=== PATIENT | female | born 1955 | race Caucasian/White ===

== ENCOUNTER 2018-05-10 18:01 | Emergency (ER) | payer OTHER ==
[2018-05-10 19:08] LABS: ADD MAN DIFF? NO
[2018-05-10] MEDS: ASPIRIN 325 MG TAB PO (19:09)
[2018-05-10 19:11] LABS: BASOPHIL # 0.1 10^3/ul (0.0-0.1); BASOPHILS % 1.2 % (0.0-2.0); EOSINOPHILS # 0.3 10^3/ul (0.0-0.5); EOSINOPHILS % 3.3 % (0.0-7.0); HEMOGLOBIN 12.9 g/dl (12.0-16.0); LYMPHOCYTES # 3.8 10^3/ul (0.8-2.9); LYMPHOCYTES % 42.1 % (15.0-51.0); MEAN CORPUSCULAR HEMOGLOBIN 28.5 pg (29.0-33.0); MEAN CORPUSCULAR HGB CONC 33.1 g/dl (32.0-37.0); MEAN CORPUSCULAR VOLUME 86.1 fl (82.0-101.0); MEAN PLATELET VOLUME 10.1 fl (7.4-10.4); MONOCYTE # 0.8 10^3/ul (0.3-0.9); MONOCYTES % 8.4 % (0.0-11.0); NEUTROPHILS % 44.8 % (39.0-77.0); PLATELET COUNT 219 10^3/UL (140-415); RED BLOOD COUNT 4.53 10^6/ul (4.20-5.40); RED CELL DISTRIBUTION WIDTH 12.9 % (11.5-14.5)
[2018-05-10 19:28] LABS: ANION GAP 14 (8-16); BLOOD UREA NITROGEN 14 mg/dl (7-20); CALCIUM 9.8 mg/dl (8.4-10.2); CARBON DIOXIDE 24 mmol/L (21-31); CHLORIDE 105 mmol/L (97-110); CREATININE 0.45 mg/dl (0.44-1.00); GLUCOSE 153 mg/dl (70-220); POTASSIUM 4.3 mmol/L (3.5-5.1); SODIUM 139 mmol/L (135-144)
[2018-05-10 19:40] LABS: B-TYPE NATRIURETIC PEPTIDE 140 PG/ML (0-125); TROPONIN-I < 0.012 ng/ml (0.000-0.120)
[2018-05-10] MEDS: LIDOCAINE/MYLANTA 40 ML BTL PO (19:46)
[2018-05-10] MEDS: morphine 4 MG/ML VIAL IV (21:31)
== END 2018-05-10 21:40 | disposition home or self-care (01) ==
LOC: E/R 18:01
DX: R07.89 Other chest pain (principal); I10 Essential (primary) hypertension; E11.9 Type 2 diabetes mellitus without complications; Z79.4 Long term (current) use of insulin; Z79.82 Long term (current) use of aspirin
CPT/HCPCS: 36415; 71045; 80048; 83880; 84484; 85025; 93005; 96374; 99285-25

== ENCOUNTER → 2018-05-26 | Outpatient (CLI) | payer OTHER ==
[2018-05-26] MEDS: IODIXANOL LOCM 100 ML BTL (12:00)
[2018-05-26] MEDS: SOD CHLORIDE 0.9% 100 ML (12:00)
[2018-05-26] MEDS: NITROGLYCERIN AEROSOL (4.9 GM) (12:21)
== END | disposition home or self-care (01) ==
LOC: C/S 09:51
DX: R06.00 Dyspnea, unspecified (principal)
CPT/HCPCS: 75574

== ENCOUNTER 2018-08-03 07:13 | Observation (INO) | payer OTHER ==
[2018-08-03 07:50] LABS: ADD MAN DIFF? NO
[2018-08-03 07:52] LABS: WHITE BLOOD COUNT 7.4 10^3/ul (4.8-10.8)
[2018-08-03 07:52] LABS: BASOPHIL # 0.1 10^3/ul (0.0-0.1); BASOPHILS % 1.1 % (0.0-2.0); EOSINOPHILS # 0.3 10^3/ul (0.0-0.5); EOSINOPHILS % 4.3 % (0.0-7.0); HEMATOCRIT 39.5 % (37.0-47.0); HEMOGLOBIN 13.1 g/dl (12.0-16.0); LYMPHOCYTES # 2.7 10^3/ul (0.8-2.9); LYMPHOCYTES % 35.9 % (15.0-51.0); MEAN CORPUSCULAR HEMOGLOBIN 28.1 pg (29.0-33.0); MEAN CORPUSCULAR HGB CONC 33.2 g/dl (32.0-37.0); MEAN CORPUSCULAR VOLUME 84.6 fl (82.0-101.0); MEAN PLATELET VOLUME 9.6 fl (7.4-10.4); MONOCYTE # 0.6 10^3/ul (0.3-0.9); MONOCYTES % 7.9 % (0.0-11.0); NEUTROPHIL # 3.8 10^3/ul (1.6-7.5); NEUTROPHILS % 50.5 % (39.0-77.0); PLATELET COUNT 241 10^3/UL (140-415); RED BLOOD COUNT 4.67 10^6/ul (4.20-5.40); RED CELL DISTRIBUTION WIDTH 12.6 % (11.5-14.5)
[2018-08-03 08:10] LABS: ANION GAP 9 (5-13); BLOOD UREA NITROGEN 13 mg/dl (7-20); CALCIUM 9.7 mg/dl (8.4-10.2); CARBON DIOXIDE 29 mmol/L (21-31); CHLORIDE 102 mmol/L (97-110); CHOL/HDL RATIO 5.8 RATIO; CHOLESTEROL 246 mg/dl (100-200); CREATININE 0.53 mg/dl (0.44-1.00); Estimated GFR > 60 mL/min (>60); GLUCOSE 231 mg/dl (70-220); HDL CHOLESTEROL 42 mg/dl (35-98); INR 0.91; LDL CHOLESTEROL,CALCULATED 146 mg/dl; POTASSIUM 4.1 mmol/L (3.5-5.1); PROTIME 12.3 Sec (11.9-14.9); SODIUM 140 mmol/L (135-144); TRIGLYCERIDES 288 mg/dl (0-149)
[2018-08-03 08:11] LABS: PARTIAL THROMBOPLASTIN TIME 25.7 Sec (23.0-35.0)
[2018-08-03] MEDS ORDERED: IODIXANOL LOCM 100 ML BTL (08:27)
[2018-08-03] MEDS ORDERED: LIDOCAINE 2% (MDV) 20 ML INJ (08:27)
[2018-08-03] MEDS ORDERED: SOD CHLORIDE 0.9% 500 ML (08:27)
[2018-08-03] MEDS ORDERED: HEPARIN 1000 UNITS/ML 10 ML INJ (08:27)
[2018-08-03] MEDS ORDERED: VERAPAMIL 5 MG INJ (08:28)
[2018-08-03] MEDS ORDERED: NITROGLYCERIN (IC) 100 MCG/ML INJ (08:28)
[2018-08-03] MEDS ORDERED: MIDAZOLAM 1 MG/ML 2 ML INJ (08:28)
[2018-08-03] MEDS ORDERED: FENTAnyl 50 MCG/ML VIAL (08:28)
[2018-08-03] MEDS ORDERED: IOHEXOL 350MG/ML 50 ML BTL (09:57)
[2018-08-03] MEDS ORDERED: BIVALIRUDIN 250MG /NS 50 ML 50 ML IVPB (10:02)
[2018-08-03] MEDS ORDERED: AL HYDROX/MG HYDROX/SIMETH 30 ML CUP PO (10:30)
[2018-08-03] MEDS ORDERED: ZOLPIDEM 5 MG TAB PO (10:30)
[2018-08-03] MEDS ORDERED: morphine 2 MG INJ IV (10:30)
[2018-08-03] MEDS ORDERED: OXYCODONE/ACETAMINOPHEN (5/325) TAB PO (10:30)
[2018-08-03] MEDS ORDERED: ACETAMINOPHEN 325 MG TAB PO (10:30)
[2018-08-03] MEDS: SOD CHLORIDE 0.9% 1,000 ML IV (12:05)
[2018-08-03] MEDS ORDERED: GLUCAGON 1 MG INJ IM (13:00)
[2018-08-03] MEDS ORDERED: GLUCOSE GEL 15 GRAM TUBE PO ×2 (13:00)
[2018-08-03] MEDS ORDERED: GLUCOSE GEL 15 GRAM TUBE BUCCAL (13:00)
[2018-08-03] MEDS ORDERED: DEXTROSE 50% 50 ML SYRINGE IV ×2 (13:00)
[2018-08-03] MEDS: ASPIRIN 325 MG TAB PO (15:17)
[2018-08-03] MEDS: CLOPIDOGREL 75 MG TAB PO (15:17)
[2018-08-03] MEDS: INSULIN ASPART [NOVOLOG] 3 ML PEN SC ×3 (17:24→21:22)
[2018-08-03] MEDS ORDERED: INSULIN ASPART [NOVOLOG] 3 ML PEN SC (17:55)
[2018-08-03] MEDS ORDERED: TICAGRELOR 90 MG TABLET PO (21:00)
[2018-08-03] MEDS ORDERED: PROPRANOLOL 40 MG TAB PO (21:00)
[2018-08-03] MEDS: ATORVASTATIN 40 MG TAB PO (21:16)
[2018-08-03] MEDS: PROPRANOLOL 40 MG TAB PO (21:16)
[2018-08-03] MEDS: INSULIN GLARGINE [LANTus] (100 UNITS/ML) SYG SC (21:22)
[2018-08-04] MEDS: ACCU-CHEK XX ×2 (01:26)
[2018-08-04] MEDS: INSULIN ASPART [NOVOLOG] 3 ML PEN SC ×4 (07:49→11:54)
[2018-08-04] MEDS: PROPRANOLOL 40 MG TAB PO (07:50)
[2018-08-04] MEDS: VENLAFAXINE 25 MG TAB PO (07:50)
[2018-08-04 08:07] LABS: ADD MAN DIFF? NO
[2018-08-04] MEDS: ASPIRIN (EC) 81 MG TAB PO (08:15)
[2018-08-04 08:16] LABS: WHITE BLOOD COUNT 8.6 10^3/ul (4.8-10.8)
[2018-08-04 08:16] LABS: BASOPHIL # 0.1 10^3/ul (0.0-0.1); BASOPHILS % 0.8 % (0.0-2.0); EOSINOPHILS # 0.3 10^3/ul (0.0-0.5); EOSINOPHILS % 3.6 % (0.0-7.0); HEMATOCRIT 37.5 % (37.0-47.0); HEMOGLOBIN 12.1 g/dl (12.0-16.0); LYMPHOCYTES # 2.5 10^3/ul (0.8-2.9); LYMPHOCYTES % 29.5 % (15.0-51.0); MEAN CORPUSCULAR HEMOGLOBIN 27.7 pg (29.0-33.0); MEAN CORPUSCULAR HGB CONC 32.3 g/dl (32.0-37.0); MEAN CORPUSCULAR VOLUME 85.8 fl (82.0-101.0); MEAN PLATELET VOLUME 9.9 fl (7.4-10.4); MONOCYTE # 0.7 10^3/ul (0.3-0.9); NEUTROPHILS % 57.8 % (39.0-77.0); PLATELET COUNT 227 10^3/UL (140-415); RED BLOOD COUNT 4.37 10^6/ul (4.20-5.40); RED CELL DISTRIBUTION WIDTH 12.8 % (11.5-14.5)
[2018-08-04] MEDS: AMLODIPINE 10 MG TAB PO (08:16)
[2018-08-04] MEDS: CLOPIDOGREL 75 MG TAB PO (08:16)
[2018-08-04] MEDS: BENAZEPRIL 10 MG TAB PO (08:16)
[2018-08-04 08:30] LABS: ANION GAP 9 (5-13); BLOOD UREA NITROGEN 14 mg/dl (7-20); CALCIUM 9.2 mg/dl (8.4-10.2); CARBON DIOXIDE 30 mmol/L (21-31); CHLORIDE 103 mmol/L (97-110); CREATINE KINASE 54 IU/L (23-200); CREATININE 0.48 mg/dl (0.44-1.00); Estimated GFR > 60 mL/min (>60); GLUCOSE 229 mg/dl (70-220); POTASSIUM 4.1 mmol/L (3.5-5.1); SODIUM 142 mmol/L (135-144)
[2018-08-04 08:40] LABS: CK-MB 2.69 ng/ml (0.0-2.4)
[2018-08-04] MEDS: ONDANSETRON 4 MG INJ IV (09:10)
[2018-08-04 10:05] LABS: TROPONIN-I 0.567 ng/ml (0.000-0.120)
[2018-08-04 10:26] LABS: MAGNESIUM 1.6 mg/dl (1.7-2.5)
[2018-08-04 12:16] LABS: CREATINE KINASE 48 IU/L (23-200)
[2018-08-04 12:29] LABS: CK INDEX 4.7; CK-MB 2.25 ng/ml (0.0-2.4)
[2018-08-04 12:33] LABS: TROPONIN-I 0.489 ng/ml (0.000-0.120)
[2018-08-04 16:38] LABS: TROPONIN-I 0.403 ng/ml (0.000-0.120)
[2018-08-05] MEDS ORDERED: PANTOPRAZOLE (EC) 40 MG TAB PO (06:00)
== END 2018-08-04 16:58 | disposition home or self-care (01) ==
LOC: SDS 07:13 → TEL 13:43
DX: I25.10 Atherosclerotic heart disease of native coronary artery without angina pectoris (principal); Z95.5 Presence of coronary angioplasty implant and graft; I10 Essential (primary) hypertension; E78.5 Hyperlipidemia, unspecified; E11.9 Type 2 diabetes mellitus without complications; Z79.4 Long term (current) use of insulin
CPT/HCPCS: 71045; 80048; 80061; 82550; 82553; 82962; 83036; 83735; 84484; 85025; 85610; 85730; 93005; 93458; G0378